=== PATIENT | female | born 1995 | race Two or more races ===

== ENCOUNTER 2021-04-03 22:49 | Inpatient (IN) | payer SELFPAY ==
[~2021-04-03] VITALS: Ht 152.4 cm; Wt 56.8 kg
[~2021-04-03 22:49] MED LIST: HYDR-3164 PO; NAPR-514 PO
[2021-04-03] MEDS ORDERED: IV RINGERS,LACTATED 1000ML 1,000 ML IV PRN (23:00)
[2021-04-03] MEDS ORDERED: ACETAMINOPHEN 325 MG TABLET. PO PRN (23:00)
[2021-04-03] MEDS ORDERED: LIDOCAINE 1% PF 30 ML VIAL. INJ PRN (23:00)
[2021-04-03] MEDS ORDERED: TERBUTALINE 1 MG/ML VIAL. SQ PRN (23:00)
[2021-04-03] MEDS ORDERED: 0.9 % SODIUM CHLORIDE 10 ML DISP.SYRIN. IV PRN (23:00)
[2021-04-03] MEDS ORDERED: OXYTOCIN 30 UNIT/500 ML PREMIX 500 ML IV PRN (23:00)
[2021-04-03] MEDS ORDERED: BUTORPHANOL 2 MG/ML VIAL. IVP PRN ×2 (23:00)
[2021-04-03 23:10] VITALS: BP 103/69
[2021-04-03 23:50] LABS: BILIRUBIN,URINE SMALL (NEG); CLARITY,URINE CLEAR; COLOR,URINE AMBER; NITRITE,URINE NEGATIVE (NEG); PROTEIN,URINE NEGATIVE (NEG-TRACE)
[2021-04-03 23:51] LABS: BASO # 0.1 x10^3/uL (0.0-0.2); BASO % 1 % (0-3); EOS # 0.2 x10^3/uL (0.0-0.7); EOS % 2 % (0-3); HEMATOCRIT 30.9 % (36.0-47.0); HEMOGLOBIN 10.1 g/dL (12.0-15.5); LYMPH % 15 % (24-48); MEAN CORPUSCULAR HEMOGLOBIN 23 pg (25-35); MEAN CORPUSCULAR HGB CONC 33 g/dL (31-37); MEAN CORPUSCULAR VOLUME 69 fL (79-100); MONO # 0.6 x10^3/uL (0.0-1.1); MONO % 5 % (0-9); NEUT # 10.4 x10^3/uL (1.8-7.7); NEUT % 78 % (31-73); PLATELET COUNT 250 x10^3/uL (140-400); RED BLOOD COUNT 4.45 x10^6/uL (3.50-5.40); RED CELL DISTRIBUTION WIDTH 14.8 % (11.5-14.5); WHITE BLOOD COUNT 13.3 x10^3/uL (4.0-11.0)
[2021-04-03 23:56] LABS: BARBITURATES NEG (NEG); BENZODIAZEPINES NEG (NEG); CANNABINOIDS NEG (NEG); COCAINE NEG (NEG); METHADONE NEG (NEG); OPIATES NEG (NEG); PHENCYCLIDINE NEG (NEG)
[2021-04-04 00:01] LABS: BACTERIA,URINE MODERATE /HPF (0-FEW)
[2021-04-04 00:03] LABS: AMPHETAMINE/METHAMPHETAMINE NEG (NEG)
[2021-04-04] MEDS ORDERED: ROPIVacaine 0.2% PF 10 ML VIAL. ONE ×2 (00:25→01:00)
[2021-04-04] MEDS ORDERED: ONDANSETRON PF 4 MG/2 ML VIAL. IV PRN (00:30)
[2021-04-04] MEDS ORDERED: ePHEDrine PF IN SALINE 50 MG/10 ML SYRINGE. IV PRN (00:30)
[2021-04-04] MEDS ORDERED: NALOXONE 0.4 MG/ML VIAL. IV PRN (00:30)
[2021-04-04] MEDS ORDERED: L&D EPIDURAL SYRINGE 50 ML EPID PRN (00:30)
[2021-04-04] MEDS ORDERED: IV RINGERS,LACTATED 1000ML 1,000 ML IV ONE (00:30)
[2021-04-04] MEDS ORDERED: fentaNYL PF VIAL 100 MCG/2 ML VIAL EPID ONE (01:00)
[2021-04-04] MEDS ORDERED: OXYTOCIN PREMIX 30 UNIT/500 ML NS BAG. IV ONE (01:00)
[2021-04-04] MEDS ORDERED: L&D EPIDURAL 50 ML SYRINGE. ONE (01:00)
--- NOTE | 2021-04-04 02:12 | PDOC1 ---
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 The pt was found to be 5 cm dilated on presentation and admitted. The pt has had a total of 3 visits and has yet to have an u/s. PMH: Denies PSH: Denies Meds: PNV, Fe All: NKDA OBHx: TSVD x 1 SH: no tob, no EtOH FH: noncontributory Medications: Meds: Current Medications Medications (Trade) Dose Ordered Sig/Lavern Route PRN Reason Start Time Stop Time Status Last Admin Dose Admin Ringer's Solution 1,000 ml @ 125 mls/hr Q8H PRN IV SEE COMMENTS 04/03/21 23:00 04/04/21 01:10 Ringer's Solution 1,000 ml @ 0 mls/hr Q0M ONCE IV 04/04/21 00:30 04/04/21 00:32 DC 04/04/21 00:46 Allergies: Coded Allergies: No Known Drug Allergies (Unverified , 08/22/18) Physical Exam: Vital Signs: Vital Signs Date Time Temp Pulse Resp B/P (MAP) Pulse Ox O2 Delivery O2 Flow Rate FiO2 04/03/21 23:10 98.1 85 20 103/69 (80) 98 Room Air 98.1 PE: GENERAL: No apparent distress. Alert and oriented. HEENT: Head normocephalic, atraumatic. NECK: Supple LUNGS: Clear to auscultation. HEART: RRR, S1, S2 present, pulses intact ABDOMEN: Soft, positive bowel sounds. EXTREMITIES: No cyanosis or edema. NEUROLOGIC: Normal speech, normal tone PSYCHIATRIC: Normal affect, normal mood. SKIN: No ulceration. FHT: 120s +acels/no decels/mLTV Sand Pillow: 1-2 min SVE: 9/90/-1 Labs: Laboratory Tests Test 04/03/21 23:25 White Blood Count 13.3 x10^3/uL (4.0-11.0) H Red Blood Count 4.45 x10^6/uL (3.50-5.40) Hemoglobin 10.1 g/dL (12.0-15.5) L Hematocrit 30.9 % (36.0-47.0) L Mean Corpuscular Volume 69 fL (79-100) L Mean Corpuscular Hemoglobin 23 pg (25-35) L Mean Corpuscular Hemoglobin Concent 33 g/dL (31-37) Red Cell Distribution Width 14.8 % (11.5-14.5) H Platelet Count 250 x10^3/uL (140-400) Neutrophils (%) (Auto) 78 % (31-73) H Lymphocytes (%) (Auto) 15 % (24-48) L Monocytes (%) (Auto) 5 % (0-9) Eosinophils (%) (Auto) 2 % (0-3) Basophils (%) (Auto) 1 % (0-3) Neutrophils # (Auto) 10.4 x10^3/uL (1.8-7.7) H Lymphocytes # (Auto) 2.0 x10^3/uL (1.0-4.8) Monocytes # (Auto) 0.6 x10^3/uL (0.0-1.1) Eosinophils # (Auto) 0.2 x10^3/uL (0.0-0.7) Basophils # (Auto) 0.1 x10^3/uL (0.0-0.2) Platelet Estimate Pending Urine Collection Type Unknown Urine Color Tiffany Urine Clarity Clear Urine pH 6.0 (<5.0-8.0) Urine Specific [place] 1.020 (1.000-1.030) Urine Protein Negative mg/dL (NEG-TRACE) Urine Glucose (UA) Negative mg/dL (NEG) Urine Ketones (Stick) 40 mg/dL (NEG) Urine Blood Small (NEG) Urine Nitrite Negative (NEG) Urine Bilirubin Small (NEG) Urine Urobilinogen Dipstick 1.0 mg/dL (0.2 mg/dL) Urine Leukocyte Esterase Small (NEG) Urine RBC 3-5 /HPF (0-2) Urine WBC 11-20 /HPF (0-4) Urine Squamous Epithelial Cells Mod /LPF Urine Bacteria Moderate /HPF (0-FEW) Urine Mucus Marked /LPF Urine Opiates Screen Neg (NEG) Urine Methadone Screen Neg (NEG) Urine Barbiturates Neg (NEG) Urine Phencyclidine Screen Neg (NEG) Urine Amphetamine/Methamphetamine Neg (NEG) Urine Benzodiazepines Screen Neg (NEG) Urine Cocaine Screen Neg (NEG) Urine Cannabinoids Screen Neg (NEG) Urine Ethyl Alcohol Neg (NEG) Treponema pallidum Antibody Nonreactive (Nonreactive) SARS-CoV-2 Antigen (Rapid) Negative (NEGATIVE) Laboratory Tests 04/03/21 23:25 Laboratory Tests 04/03/21 23:25 Assessment & Plan: A/P 25y @ 37.0 by LMP 1.) Active labor 2.) Late presentation to care 3.) TDAP given 03/16/21 4.) Covid vaccine - 1st dose 03/16/21 (not documented) 5.) Anemia - Hgb 10.0 6.) Fetus cat I FHT 7.) GBS neg CONSTANZA WILSON MD Apr 04, 2021 02:12
--- NOTE | 2021-04-04 02:38 | PDOC4 ---
VAGINAL DELIVERY DATE DATE: 04/04/21 TIME: 02:38 TIME Patient delivered a viable male infant over intact perineum at 0224. Wt 6 lb 8.8 oz.. Apgars 8/8. Placenta delivered spontaneously, intact with 3VC. 2nd degree laceration repaired with 20 vicryl in nml fashion. Good hemostasis noted. 20 U of Pit given with IVF. EBL 200 cc (most dark old blood). WEIGHT Weight [ ] CONSTANZA WILSON MD Apr 04, 2021 02:38
[2021-04-04] MEDS ORDERED: MMR per PROTOCOL. MC PRN (02:45)
[2021-04-04] MEDS ORDERED: ACETAMINOPHEN 325 MG TABLET. PO PRN (02:45)
[2021-04-04] MEDS ORDERED: 0.9 % SODIUM CHLORIDE 10 ML DISP.SYRIN. IV PRN (02:45)
[2021-04-04] MEDS ORDERED: OXYTOCIN 30 UNIT/500 ML PREMIX 500 ML IV PRN (02:45)
[2021-04-04] MEDS ORDERED: oxyCODONE/APAP 5/325 1 TAB TABLET PO PRN (02:45)
[2021-04-04] MEDS ORDERED: MAGNESIUM HYDROXIDE 2,400 MG/30 ML ORAL.SUSP. PO PRN (02:45)
[2021-04-04] MEDS ORDERED: HYDROCORTISONE 1% TOPICAL OINTMENT 30GM TUBE. TP PRN (02:45)
[2021-04-04] MEDS ORDERED: PHENYLEPH/MINERAL OIL/PETROLAT RECTAL OINTMENT TUBE. RC PRN (02:45)
[2021-04-04] MEDS ORDERED: diphenhydrAMINE HCL 25 MG CAPSULE PO PRN (02:45)
[2021-04-04] MEDS ORDERED: TDaP (Adacel) per PROTOCOL. MC PRN (02:45)
[2021-04-04] MEDS ORDERED: BENZOCAINE 20% TOPICAL AEROSOL SPRAY 57GM CAN. TP PRN (02:45)
[2021-04-04] MEDS ORDERED: MAG HYDROX/ALUMINUM HYD/SIMETH 30 ML ORAL.SUSP PO PRN (02:45)
[2021-04-04] MEDS ORDERED: ZOLPIDEM 5 MG TABLET. PO PRN (02:45)
[2021-04-04] MEDS ORDERED: DOCUSATE SODIUM 100 MG CAPSULE. PO PRN (02:45)
[2021-04-04] MEDS ORDERED: SIMETHICONE 80 MG TAB.CHEW PO PRN (02:45)
[2021-04-04 03:20] LABS: PLT ESTIMATE ADEQUATE (ADEQUATE)
[2021-04-04 03:21] LABS: ANISOCYTOSIS SLIGHT; HYPOCHROMIA MOD; MICROCYTOSIS MOD; POLYCHROMASIA SLIGHT
[2021-04-04 05:00] VITALS: BP 109/69
[2021-04-04] MEDS: IBUPROFEN 400 MG TABLET. PO PRN ×2 (05:14→23:27)
[2021-04-04 06:00] VITALS: BP 104/68
[2021-04-04 09:15] VITALS: BP_SYST 107; BP_SYST 96; BP_DIAS 43; BP_DIAS 58
[2021-04-04] MEDS: PRENATAL MULTIVITAMIN TABLET. PO SCH (10:07)
[2021-04-04 12:50] VITALS: BP 95/63
[2021-04-04 16:30] VITALS: BP 91/53
[2021-04-04 22:45] VITALS: BP 109/70
[2021-04-05 06:25] VITALS: BP 105/67
[2021-04-05 07:51] LABS: HEMATOCRIT 27.4 % (36.0-47.0); HEMOGLOBIN 8.8 g/dL (12.0-15.5); RED BLOOD COUNT 3.83 x10^6/uL (3.50-5.40); WHITE BLOOD COUNT 12.2 x10^3/uL (4.0-11.0)
[2021-04-05] MEDS ORDERED: FERROUS SULFATE 325 MG TABLET. PO SCH (08:00)
[2021-04-05] MEDS: PRENATAL MULTIVITAMIN TABLET. PO SCH (08:33)
[2021-04-05 09:24] VITALS: BP 117/61
--- NOTE | 2021-04-05 10:54 | PDOC ---
[employer] MAKER PROGRESS NOTE Date of Service: DATE: 04/05/21 TIME: 10:53 Subjective: Pt with good pain control. Jose G PO. Voiding. Minimal lochia. Objective: Vital Signs: Vital Signs Date Time Temp Pulse Resp B/P (MAP) Pulse Ox O2 Delivery O2 Flow Rate FiO2 04/04/21 09:15 98.1 87 20 96/58 (71) 97 Room Air 98.1 Vital Signs Date Time Temp Pulse Resp B/P (MAP) Pulse Ox O2 Delivery O2 Flow Rate FiO2 04/05/21 09:24 98.6 61 20 117/61 (79) 98.6 04/05/21 06:25 100 Room Air Labs: Laboratory Tests Test 04/05/21 07:30 White Blood Count 12.2 x10^3/uL (4.0-11.0) H Red Blood Count 3.83 x10^6/uL (3.50-5.40) Hemoglobin 8.8 g/dL (12.0-15.5) L Hematocrit 27.4 % (36.0-47.0) L Mean Corpuscular Volume 72 fL (79-100) L Mean Corpuscular Hemoglobin 23 pg (25-35) L Mean Corpuscular Hemoglobin Concent 32 g/dL (31-37) Red Cell Distribution Width 15.0 % (11.5-14.5) H Platelet Count 191 x10^3/uL (140-400) Laboratory Tests 04/05/21 07:30 Laboratory Tests 04/05/21 07:30 Physical Exam: GENERAL: No apparent distress. Alert and oriented. HEENT: Head normocephalic, atraumatic. NECK: Supple LUNGS: Clear to auscultation. HEART: RRR, S1, S2 present, pulses intact ABDOMEN: Soft, positive bowel sounds. EXTREMITIES: No cyanosis or edema. NEUROLOGIC: Normal speech, normal tone PSYCHIATRIC: Normal affect, normal mood. SKIN: No ulceration. FFNT below umb No C/C/E Assessment & Plan: A/P 25y PPD #1 s/p 1.) PP doing well 2.) TDAP given 03/16/21 3.) Covid vaccine - 1st dose 03/16/21 (not documented) 4.) Anemia - Hgb 10.1 -> 8.8 5.) D/c home CONSTANZA WILSON MD Apr 05, 2021 10:54
[2021-04-05] MEDS ORDERED: DOCU-109 PO (10:57)
[2021-04-05] MEDS ORDERED: FERR325T14 PO (10:57)
[2021-04-05] MEDS ORDERED: IBUP-1060 PO (10:57)
--- NOTE | 2021-04-05 11:30 | NUR ---
dismissal instructions given per information technology instructor #[id number] . Pt verbalized understanding.
[2021-04-05 12:30] VITALS: BP 117/61
--- NOTE | 2021-04-05 15:02 | DS ---
DATE OF DISCHARGE: 04/05/2021 ADMISSION DIAGNOSES: 1. Intrauterine at 37 weeks and 0 days by LMP. 2. Active labor. 3. Late presentation to care. 4. Status post Tdap. 5. Status post one dose of the COVID vaccine on 03/16/2001. 6. Anemia. 7. GBS negative. DISCHARGE DIAGNOSES: 1. Intrauterine at 37 weeks and 0 days by LMP. 2. Active labor. 3. Late presentation to care. 4. Status post Tdap. 5. Status post one dose of the COVID vaccine on 03/16/2001. 6. Anemia. 7. GBS negative. PROCEDURE: Spontaneous vaginal delivery. BRIEF HOSPITAL COURSE: The patient is a 25-year-old 2, para 1-0-0-1, who presented to Labor and Delivery at 37 weeks and 0 days by LMP with contractions. The patient was found to be 5 cm dilated on presentation. The patient ultimately progressed to complete and delivered by vaginal delivery. See delivery note for full detail. Of note, the patient had a total of 3 visits during her course and had yet to have an ultrasound. By day #1, the patient was meeting all discharge criteria and subsequently discharged home. Of note, the patient's hemoglobin on admission was 10.1 and after delivery, was found to be 8.8. DISCHARGE INSTRUCTIONS: The patient was told not to lift anything greater than 20 pounds, have pelvic rest for 6 weeks. CALL IF: The patient was to call if she had fevers, chills, nausea, vomiting, abdominal pain, or any additional questions or concerns. FOLLOWUP APPOINTMENT: The patient was to follow up on 05/18 at 9:00 a.m. at [facility] for a visit. DISCHARGE MEDICATIONS: The patient was given a prescription for Motrin 800 mg, 30 pills and Colace 100 mg, 30 pills and ferrous sulfate 325 mg, 30 pills. [facility] DR: Sandy TID: [id number]
--- NOTE | 2021-04-05 18:10 | PATHOLOGY ---
[facility] Accession Number: [id number] . 01 Material submitted: . placenta - PLACENTA WITH CORD . 01 Clinical history: . SROM LABOR SPONTANEOUS VAGINAL DELIVERY R/O ABRUPTION LIMITED PNG 36.6 WK . 02 Diagnosis: 523 gram early term placenta of an estimated 37 weeks gestation with attached membranes and umbilical cord and separate detached segment of umbilical cord: - Placental weight at approximate 75th percentile for estimated gestational age. - Acute chorionitis, focal. - Focally increased perivillous fibrin deposition. (JPM:michell; 04/05/2021) [facility] 04/05/2021 1443 Local . 02 Comment: Sections of the placental membranes show focal acute chorionitis. There is no evidence of an acute chorioamnionitis or villitis. While there are foci of increased perivillous fibrin deposition, there are no infarcts and there is no evidence of maternal floor infarction. (ROSMERYM:michell; 04/05/2021) . 02 Electronically signed: . Alli Angel MD, Pathologist NPI- [id number] . 01 Gross description: . Fixative: Formalin Labeled: Per the specimen container: Placenta; per the requisition: Placenta with cord Specimen received: An intact davis placenta to include disc, umbilical cord, and membranes. An additional segment of umbilical cord is identified within the specimen container. Dimensions: 17.0 x 15.0 x 2.5 cm membranes appearance: Pickett-pink and semitranslucent membrane rupture: 6.0 cm from placental disc membrane insertion: Marginal Umbilical cord: Attached to placenta: 13.0 cm in length; additional segment: 15.0 cm in length, ranges from 1.5-2.5 cm in diameter Umbilical cord insertion: Eccentric, 4.3 cm from the closest placental margin Number of umbilical vessels: 3 Umbilical cord appearance: Pickett-white and gelatinous with 5 spirals per 10 cm Trimmed placental weight: 523 g surface: Blue-dickerson and well vascularized Maternal surface: Red-brown with intact cotyledons which appear entirely present Abnormalities: None identified . Scrip Clerk sections are submitted as follows: A1 umbilical cord A2 membranes, rolled A3 welding equipment sales representative peripheral placenta, full-thickness section A4 welding equipment sales representative central placenta, full-thickness section A5 additional maternal surface (MRF; 04/04/2021) MFE/MFE 04/04/2021 2200 Local . 02 Pathologist provided ICD-10: Z3A.37 . 02 CPT . 879610 Specimen Comment: A courtesy copy of this report has been sent to [phone] Specimen Comment: Report sent to Performed at: 01 [facility] [address], [place] [id number] MD Arvind Pérez MD Phone: [phone] Performed at: 02 [facility] [address] [place], [place] [id number] MD Alli Angel MD Phone: [phone]
== END 2021-04-05 13:00 | disposition home or self-care (01) | DRG 807 ==
LOC: 3 SO LND 22:49 → OBSVTOIN 22:49 → 3 SO LND 04-04 05:00
PROVIDERS: ADMIT Obstetrics & Gynecology; ATTEND Obstetrics & Gynecology
PROC: 10E0XZZ Delivery of Products of Conception, External Approach (ICD-10-PCS; principal; 2021-04-04)
PROC: 0KQM0ZZ Repair Perineum Muscle, Open Approach (ICD-10-PCS; 2021-04-04)
DX: O99.02 Anemia complicating childbirth (principal); Z37.0 Single live birth; O70.1 Second degree perineal laceration during delivery; D64.9 Anemia, unspecified; Z3A.37 37 weeks gestation of pregnancy; Z20.822 Contact with and (suspected) exposure to COVID-19
CPT/HCPCS: 36415; 80307; 81001; 85025; 85027; 86592; 86850; 86900; 86901; 87086; 87426; 88307; A6258; C1755; J2590; J2795; J3010; J7120; U0003; U0005; G0378; Q0163